=== PATIENT | female | born 1955 | race Caucasian/White ===

== ENCOUNTER → 2018-03-28 11:45 | Outpatient (CLI) | payer OTHER, SELFPAY | PROVIDERS: PCP Physician Assistant; Visit Provider Physician Assistant | DX: R30.0 Dysuria (principal); R39.15 Urgency of urination; D72.819 Decreased white blood cell count, unspecified; E78.5 Hyperlipidemia, unspecified | CPT/HCPCS: 87086 ==

== ENCOUNTER → 2018-06-10 08:12 | Outpatient (CLI) | payer OTHER, SELFPAY ==
[2018-06-10 09:43] LABS: Add Manual Diff / Slide Review NO; Basophils Percent Auto 2.4 % (0-2); Eosinophils Percent Auto 1.1 % (2-4); Hematocrit 41.3 % (36-46); Lymphocytes Percent Auto 35.6 % (25-40); Mean Corpuscular HGB Conc 33.9 % (30-36); Mean Corpuscular Hemoglobin 30.6 PG (26-34); Mean Corpuscular Volume 90.4 fL (80-100); Monocytes Percent Auto 10.2 % (3-14); Neutrophils Absolute Auto 1400 /uL (3000-5900); Neutrophils Percent Auto 50.7 % (50-75); Platelet Count 273 X10^3/uL (150-400); Red Blood Cell Count 4.57 X10^6/uL (4.0-5.2); Red Cell Distribution Width 12.7 % (11.6-14.8); White Blood Cell Count 2.9 X10^3/uL (4.5-11.0)
[2018-06-10 10:46] LABS: Cholesterol 284 mg/dL (140-199); HDL Cholesterol 57 mg/dL (40-60); LDL Cholesterol Calculated 202 mg/dL (<100); Triglycerides 125 mg/dL (35-150)
== END ==
PROVIDERS: PCP Physician Assistant; Visit Provider Physician Assistant
DX: E78.5 Hyperlipidemia, unspecified (principal); D72.819 Decreased white blood cell count, unspecified
CPT/HCPCS: 36415; 80061; 85025

== ENCOUNTER → 2018-07-21 15:00 | Oncology outpatient (ONC) | payer OTHER, SELFPAY ==
--- NOTE | 2018-06-30 15:49 | ONC.CONS ---
History of Present Illness - Data of Consult Patient: new to practice Consult date: 06/30/18 Requesting Physician: Ana Vasques PA-C Primary Care Provider: Ana Vasques PA-C - Consult Narrative Reason for consult: Leukopenia and neutropenia Narrative: Samantha Austin is a 63 year old female with medical comorbidities notable for hyperlipidemia and vitamin-D deficiency. She was referred to Hematology because of mild leukopenia. Patient recalled that she has been awere of the low WBC since 2016. Upon review of the available electronic medical records, patient's white cell count on May 14, 2014 was 2.8, on 08/13/2017 it was 3.4 and on December 03, 2017, it was 3.2. The most recent was taken on June 10, 2018 and was 2.9. The corresponding absolute neutrophil count was 1.1 on 05/14/2017, 1.8 on 08/13/2017, 1.7 on 12/03/2017 and 1.5 on 06/10/2018. His hemoglobin/hematocrit as well as platelet counts have always been within the normal range. Clinically, she reported fatigue which she attributed to long commute driving time daily and sleeping difficulty. She denies any lumps or bumps. No fever and no chills. She denies shortness of breath, denies any chest pain.She always sinus issue. She denies abdominal pain, nausea or vomiting. She has not had colonoscopy. She is getting mammogram yearly and has been unremarkable. She had exposed to silk screen Benzene when she was in college. Patient reports pain?: No Home Medications and Allergies Home Medications Medication Instructions Recorded Confirmed Type Cranberry 1 tab PO .QDAY 03/28/18 06/30/18 History Vitamin D3 See Label Instructions .ROUTE 03/28/18 06/30/18 History .COMPLEX aspirin 650 mg PO Q4-6H PRN 06/30/18 06/30/18 History loratadine [Alavert] 10 mg PO DAILY PRN 06/30/18 06/30/18 History rosuvastatin 10 mg tablet 10 mg PO BEDTIME #45 tab 06/30/18 Rx Allergies Allergy/AdvReac Type Severity Reaction Status Date / Time No Known Drug Allergies Allergy Verified 06/30/18 15:55 Medical History - Medical, Surgical, Family History Medical History: Medical History (Last Updated 05/22/18 @ 12:59 by Sarah Zepeda) Frequent UTI Onset Date: 2007 Hayfever Onset Date: 1974 Hearing loss Onset Date: 1965 Rosacea Onset Date: 1993 Chicken pox Onset Date: 1959 Fractures Measles Onset Date: 1960 Surgical History: Surgical History (Last Updated 05/22/18 @ 12:56 by Sarah Zepeda) Anesthesia History of tonsillectomy Onset Date: 1965 Status post cholecystectomy Onset Date: 1999 Family History: Family History Brother Age: 75 Heart disease Brother Age: 70 Alzheimer's disease Mother Hypertension Alzheimer's disease Pneumonia Sister Age: 65 High cholesterol Father Diverticulitis ETOH abuse - Social History Smoking Status: Never smoker Substance Use Type: does not use Alcohol Intake: current Alcohol Intake Frequency: holidays/special occasions only Review of Systems - Patient Self-Reported Symptoms SR Constitution: Weight loss/gain SR respiratory issues: Mucous All systems PM: reviewed and no additional remarkable complaints except as stated Exam Vital signs: Last Vital Signs Temp 98.6 F 06/30/18 15:52 Pulse 74 06/30/18 15:52 Resp 16 06/30/18 15:52 BP 125/64 06/30/18 15:52 Pulse Ox 96 06/30/18 15:52 ECOG 1 Narrative: Constitutional: Well developed, well nourished, not in any acute respiratory distress, average body habitus, well groomed, pleasant and cooperative. HEENT: NCAT, EOMI, PERRLA. Anicteric sclera. No hearing difficulty; Oral mucus membrane moist and without ulcers. Neck: Supple, symmetrical, and tracheal midline; No palpable thyromegaly and no palpable lymph nodes. Respiratory: No use of accessory muscles. Clear to auscultation, and no wheezes or rales or rubs. Cardiovascular: Regular rate and rhythm, S1 and S2 normal, no murmurs gallops or rubs. No JVD. No pitting edema of lower extremities. Abdomen: Soft, nontender, non-distended, bowel sounds normal, no palpable organomegaly, no hernia, no palpable masses. Extremities: No lower extremity pitting edema. Lymphatic: no palpable lymph nodes in the neck, axillae, or groins. Musculoskeletal: normal gait and station, no clubbing, no cyanosis, no pitting edema. Skin: no rashes, no ulcers, no petechiae Neurological: Awake and alert and oriented x3. CN II-XII grossly intact. No focal motor or sensory deficit. Psychiatric: Good judgment, good insight, normal affect, normal thought process, cooperative, no depression, no anxiety. Results - Labs Reviewed Assessment and Plan (1) Leukopenia Problem details: Mild leukopenia (neutropenia) at least since 05/2017. I reviewed the available lab results with the patient. I explained to the patient that mildly lowered neutrophil count has several different etiologies. Most commonly is medications related versus vitamin B12/folic acid deficiency. Talked with the patient that I will 1st proceed with screening laboratory tests. If they are normal, I will proceed with more tests regarding possibly hematological disorders. Today I also talked with the patient that his white cell count is decreased but the risk of infection is not significantly affected at this level of leukopenia. Plan: 1. CBC, CMP, B2M, SPEP reflex IFIX, B12, MMA, folic acid 2. RTC in 2-3 weeks for follow up visit.
[2018-06-30 15:52] VITALS: BP 125/64; PULSE 74; RESP 16; TEMP 37; O2SAT 96
[2018-07-04 16:10] LABS: Add Manual Diff / Slide Review NO; Basophils Percent Auto 0.2 % (0-2); Eosinophils Percent Auto 1.1 % (2-4); Hematocrit 41.7 % (36-46); Hemoglobin 13.7 g/dL (12.0-16.0); Lymphocytes Percent Auto 39.7 % (25-40); Mean Corpuscular HGB Conc 32.9 % (30-36); Mean Corpuscular Volume 91.2 fL (80-100); Monocytes Percent Auto 7.8 % (3-14); Neutrophils Absolute Auto 2200 /uL (3000-5900); Neutrophils Percent Auto 51.2 % (50-75); Platelet Count 325 X10^3/uL (150-400); Red Blood Cell Count 4.57 X10^6/uL (4.0-5.2); Red Cell Distribution Width 12.7 % (11.6-14.8); White Blood Cell Count 4.3 X10^3/uL (4.5-11.0)
[2018-07-04 17:40] LABS: Alanine Aminotransferase 26 IU/L (9-52); Albumin 4.3 g/dL (3.5-5.0); Albumin Globulin Ratio 1.6 (1.0-2.8); Alkaline Phosphatase 65 U/L (38-126); Aspartate Aminotransferase 26 IU/L (14-36); BUN Creatinine Ratio 21.4 (6-22); Bilirubin Total 0.3 mg/dL (0.2-1.3); Blood Urea Nitrogen 15 mg/dL (7-17); Calcium 9.1 mg/dL (8.4-10.2); Carbon Dioxide 26 mmol/L (22-32); Chloride 102 mmol/L (98-107); Estimated Glomerular Filt Rate > 60.0 mL/min (>60); Globulin 2.7 g/dL (1.7-4.1); Glucose 111 mg/dL (80-110); HEMOLYSIS < 15 (0-50); Lactate Dehydrogenase 389 U/L (313-618); Potassium 3.7 mmol/L (3.4-5.1); Sodium 141 mmol/L (137-145)
[2018-07-04 18:47] LABS: Vitamin B12 283 pg/mL (239-931)
--- NOTE | 2018-07-05 09:20 | PC.NURSE ---
Pre visit labs appear stable, outside labs pending, provider visit 07/21
[2018-07-07 21:18] LABS: Albumin 4.1 g/dL (3.8-4.8); Alpha 1 Globulin 0.2 g/dL (0.2-0.3); Alpha 2 Globulin 0.7 g/dL (0.5-0.9); Beta 1 Globulin 0.4 g/dL (0.4-0.6); Gamma Globulin 0.7 g/dL (0.8-1.7); Protein, Total 6.5 g/dL (6.1-8.1)
[2018-07-11 22:46] LABS: Methylmalonic Acid 280 nmol/L (87-318)
--- NOTE | 2018-07-21 15:21 | ONC.PN ---
PN -Subjective Interval history: Clinically patient has been doing well without any new complaints. Patient has been followed by [facility]. Patient said because of the high cholesterol level, she has been restarted on Crestor. She will continue follow-up with Ana Vasques with regular blood work. Repeat lab showed today the white cell count 4.3, hemoglobin 13.7 hematocrit 41.7 ANC 2.2. Hematological History: Samantha Austin is a 63 year old female with medical comorbidities notable for hyperlipidemia and vitamin-D deficiency. She was referred to Hematology because of mild leukopenia. Patient recalled that she has been awere of the low WBC since 2016. Upon review of the available electronic medical records, patient's white cell count on May 14, 2014 was 2.8, on 08/13/2017 it was 3.4 and on December 03, 2017, it was 3.2. The most recent was taken on June 10, 2018 and was 2.9. The corresponding absolute neutrophil count was 1.1 on 05/14/2017, 1.8 on 08/13/2017, 1.7 on 12/03/2017 and 1.5 on 06/10/2018. His hemoglobin/hematocrit as well as platelet counts have always been within the normal range. Clinically, she reported fatigue which she attributed to long commute driving time daily and sleeping difficulty. She denies any lumps or bumps. No fever and no chills. She denies shortness of breath, denies any chest pain.She always sinus issue. She denies abdominal pain, nausea or vomiting. She has not had colonoscopy. She is getting mammogram yearly and has been unremarkable. She had exposed to silk screen Benzene when she was in college. - Patient Self-Reported Symptoms SR Constitution: Weight loss/gain SR respiratory issues: Mucous - Additional ROS All systems PM: reviewed and no additional remarkable complaints except as stated Home Medications and Allergies Home Medications Medication Instructions Recorded Confirmed Type Cranberry 1 tab PO .QDAY 03/28/18 07/21/18 History Vitamin D3 See Label Instructions .ROUTE 03/28/18 07/21/18 History .COMPLEX aspirin 650 mg PO Q4-6H PRN 06/30/18 07/21/18 History loratadine [Alavert] 10 mg PO DAILY PRN 06/30/18 07/21/18 History rosuvastatin 10 mg tablet 10 mg PO BEDTIME #45 tab 06/30/18 07/21/18 Rx rosuvastatin [Crestor] 10 mg PO DAILY 07/21/18 07/21/18 History Allergies Allergy/AdvReac Type Severity Reaction Status Date / Time No Known Drug Allergies Allergy Verified 06/30/18 15:55 Exam Vital signs: Last Vital Signs Temp 98.6 F 06/30/18 15:52 Pulse 74 06/30/18 15:52 Resp 16 06/30/18 15:52 BP 125/64 06/30/18 15:52 Pulse Ox 96 06/30/18 15:52 ECOG 1 - Constitutional positive no acute distress, positive average body habitus, positive cooperative - Routine HEENT Exam Head: Present: normocephalic, atraumatic Eye: Present: EOMI, PERRL, normal accommodation. Absent: conjunctival icterus ENT: Present: mucous membranes moist - Routine Neck Exam Present: supple. Absent: lymphadenopathy, thyromegaly - Routine Respiratory Exam Present: Clear to auscultation bilaterally - Routine Cardiovascular Exam Present: RRR, S1, S2. Absent: murmur, gallop, rubs, S3 - Routine Abdominal Exam Present: soft, normoactive bowel sounds. Absent: organomegaly, mass - Routine Extremities Exam Absent: edema - Routine Neurological Exam Present: alert, oriented X3, CN II-XII intact - Routine Psychiatric Exam Present: normal affect, normal thought process, cooperative, good insight, good judgment Results - Labs Laboratory Last Values WBC 4.3 X10^3/uL (4.5-11.0) L 07/04/18 15:50 RBC 4.57 X10^6/uL (4.0-5.2) 07/04/18 15:50 Hgb 13.7 g/dL (12.0-16.0) 07/04/18 15:50 Hct 41.7 % (36-46) 07/04/18 15:50 MCV 91.2 fL (80-100) 07/04/18 15:50 MCH 30.0 PG (26-34) 07/04/18 15:50 MCHC 32.9 % (30-36) 07/04/18 15:50 RDW 12.7 % (11.6-14.8) 07/04/18 15:50 Plt Count 325 X10^3/uL (150-400) 07/04/18 15:50 Neut % (Auto) 51.2 % (50-75) 07/04/18 15:50 Lymph % (Auto) 39.7 % (25-40) 07/04/18 15:50 [place] % (Auto) 7.8 % (3-14) 07/04/18 15:50 Eos % (Auto) 1.1 % (2-4) L 07/04/18 15:50 Baso % (Auto) 0.2 % (0-2) 07/04/18 15:50 Neut # (Auto) 2200 /uL (6132-5871) L 07/04/18 15:50 Sodium 141 mmol/L (137-145) 07/04/18 15:50 Potassium 3.7 mmol/L (3.4-5.1) 07/04/18 15:50 Chloride 102 mmol/L (98-107) 07/04/18 15:50 Carbon Dioxide 26 mmol/L (22-32) 07/04/18 15:50 BUN 15 mg/dL (7-17) 07/04/18 15:50 Creatinine 0.70 mg/dL (0.52-1.04) 07/04/18 15:50 Estimated GFR > 60.0 mL/min (>60) 07/04/18 15:50 BUN/Creatinine Ratio 21.4 (6-22) 07/04/18 15:50 Glucose 111 mg/dL (80-110) H 07/04/18 15:50 Calcium 9.1 mg/dL (8.4-10.2) 07/04/18 15:50 Total Bilirubin 0.3 mg/dL (0.2-1.3) 07/04/18 15:50 AST 26 IU/L (14-36) 07/04/18 15:50 ALT 26 IU/L (9-52) 07/04/18 15:50 Alkaline Phosphatase 65 U/L (38-126) 07/04/18 15:50 Lactate Dehydrogenase 389 U/L (313-618) 07/04/18 15:50 Serum Total Protein 6.5 g/dL (6.1-8.1) 07/04/18 15:50 Total Protein 7.0 g/dL (6.3-8.2) 07/04/18 15:50 Albumin 4.1 g/dL (3.8-4.8) 07/04/18 15:50 Globulin 2.7 g/dL (1.7-4.1) 07/04/18 15:50 Albumin/Globulin Ratio 1.6 (1.0-2.8) 07/04/18 15:50 Chkpu-9-Iiidjidip 0.2 g/dL (0.2-0.3) 07/04/18 15:50 Nzbhq-1-Lnfsnjfjb 0.7 g/dL (0.5-0.9) 07/04/18 15:50 Gucv-8-Yjjaofwl 0.4 g/dL (0.4-0.6) 07/04/18 15:50 Ozfb-7-Rodgecie 0.4 g/dL (0.2-0.5) 07/04/18 15:50 Fbbs-0-Emugpzbktnaea 2.10 mg/L (< 2.52) 07/04/18 15:50 Gamma Globulins 0.7 g/dL (0.8-1.7) L 07/04/18 15:50 Abnorm Protein Band 1 Not Reportable 07/04/18 15:50 Abnorm Protein Band 2 Not Reportable 07/04/18 15:50 Abn Gamma Band 3 Serum Not Reportable 07/04/18 15:50 PEP Comment See note 07/04/18 15:50 Vitamin B12 283 pg/mL (239-931) 07/04/18 15:50 Methylmalonic Acid 280 nmol/L (87-318) 07/04/18 15:50 Folate 6.0 ng/mL (2.76-20.0) 07/04/18 15:50 Assessment and Plan (1) Leukopenia Problem details: Mild leukopenia (neutropenia) at least since 05/2017. Assessment and Plan: I reviewed the laboratory results with the patient. Patient's white cell count has almost normalized. Her vitamin B12, and folic acid level are all within the normal range. Now, the WBC is trending up. I think the leukopenia probably is related to either medications or some transient factors. I talked with the patient that she needs to continued follow-up. She will follow-up with Ana Vasques. I recommend regular CBC with differentials. If it becomes low again, patient needs to call us back for follow-up visit.
[2018-07-21 16:01] VITALS: BP 130/76; PULSE 77; RESP 16; TEMP 37.3; O2SAT 98
== END ==
PROVIDERS: PCP Physician Assistant; Visit Provider Internal Medicine Hematology & Oncology
DX: D72.819 Decreased white blood cell count, unspecified (principal); E78.5 Hyperlipidemia, unspecified; E55.9 Vitamin D deficiency, unspecified
CPT/HCPCS: 36415; 80053; 82232; 82607; 82746; 83615; 83921; 84155; 84165; 85025; 99204; 99214

== ENCOUNTER → 2018-09-09 08:14 | Outpatient (CLI) | payer OTHER, SELFPAY ==
[2018-09-09 10:14] LABS: Alanine Aminotransferase 44 IU/L (9-52); Albumin 4.2 g/dL (3.5-5.0); Albumin Globulin Ratio 1.6 (1.0-2.8); Alkaline Phosphatase 67 U/L (38-126); Aspartate Aminotransferase 38 IU/L (14-36); BUN Creatinine Ratio 17.1 (6-22); Bilirubin Total 0.6 mg/dL (0.2-1.3); Blood Urea Nitrogen 12 mg/dL (7-17); Calcium 9.2 mg/dL (8.4-10.2); Carbon Dioxide 26 mmol/L (22-32); Chloride 105 mmol/L (98-107); Cholesterol 190 mg/dL (140-199); Estimated Glomerular Filt Rate > 60.0 mL/min (>60); Globulin 2.6 g/dL (1.7-4.1); Glucose 84 mg/dL (80-110); HDL Cholesterol 78 mg/dL (40-60); HEMOLYSIS < 15 (0-50); LDL Cholesterol Calculated 87 mg/dL (<100); Potassium 4.3 mmol/L (3.4-5.1); Sodium 140 mmol/L (137-145); Total Protein 6.8 g/dL (6.3-8.2); Triglycerides 125 mg/dL (35-150)
== END ==
PROVIDERS: PCP Physician Assistant; Visit Provider Physician Assistant
DX: E78.5 Hyperlipidemia, unspecified (principal)
CPT/HCPCS: 36415; 80053; 80061

== ENCOUNTER → 2018-11-15 17:26 | Outpatient (CLI) | payer OTHER, SELFPAY | PROVIDERS: PCP Physician Assistant; Visit Provider Physician Assistant | DX: R30.0 Dysuria (principal) | CPT/HCPCS: 87077; 87086; 87186 ==

== ENCOUNTER → 2019-03-23 08:13 | Outpatient (CLI) | payer OTHER, SELFPAY ==
[2019-03-23 08:54] LABS: Add Manual Diff / Slide Review NO; Basophils Absolute Auto 100 /uL (0-100); Basophils Percent Auto 2.7 % (0-2); Eosinophils Absolute Auto 100 /uL (0-450); Hemoglobin 14.3 g/dL (12.0-16.0); Lymphocytes Absolute Auto 1100 /uL (1100-4500); Lymphocytes Percent Auto 35.4 % (25-40); Mean Corpuscular HGB Conc 34.2 % (30-36); Mean Corpuscular Hemoglobin 30.8 PG (26-34); Mean Corpuscular Volume 90.1 fL (80-100); Monocytes Absolute Auto 300 /uL (0-900); Monocytes Percent Auto 9.1 % (3-14); Neutrophils Absolute Auto 1600 /uL (1500-7000); Neutrophils Percent Auto 50.8 % (50-75); Platelet Count 262 X10^3/uL (150-400); Red Blood Cell Count 4.66 X10^6/uL (4.0-5.2); Red Cell Distribution Width 12.9 % (11.6-14.8); White Blood Cell Count 3.1 X10^3/uL (4.5-11.0)
[2019-03-23 09:21] LABS: Alanine Aminotransferase 23 IU/L (9-52); Albumin 4.1 g/dL (3.5-5.0); Albumin Globulin Ratio 1.4 (1.0-2.8); Alkaline Phosphatase 61 U/L (38-126); Aspartate Aminotransferase 26 IU/L (14-36); BUN Creatinine Ratio 13.8 (6-22); Bilirubin Total 0.5 mg/dL (0.2-1.3); Blood Urea Nitrogen 11 mg/dL (7-17); Calcium 9.3 mg/dL (8.4-10.2); Carbon Dioxide 28 mmol/L (22-32); Chloride 106 mmol/L (98-107); Cholesterol 165 mg/dL (140-199); Estimated Glomerular Filt Rate > 60.0 mL/min (>60); Globulin 2.9 g/dL (1.7-4.1); Glucose 90 mg/dL (80-110); HDL Cholesterol 64 mg/dL (40-60); HEMOLYSIS < 15 (0-50); LDL Cholesterol Calculated 73 mg/dL (<100); Potassium 4.1 mmol/L (3.4-5.1); Sodium 141 mmol/L (137-145); Triglycerides 142 mg/dL (35-150)
[2019-03-23 09:37] LABS: Vitamin D 25 Hydroxy (D3) 58.6 ng/mL (30.0-100.0)
== END ==
PROVIDERS: PCP Physician Assistant; Visit Provider Physician Assistant
DX: D72.819 Decreased white blood cell count, unspecified (principal); E55.9 Vitamin D deficiency, unspecified; E78.5 Hyperlipidemia, unspecified; M81.0 Age-related osteoporosis without current pathological fracture
CPT/HCPCS: 36415; 80053; 80061; 82306; 85025

== ENCOUNTER → 2019-04-24 13:35 | Outpatient (CLI) | payer OTHER, SELFPAY | PROVIDERS: PCP Physician Assistant; Visit Provider Physician Assistant | DX: N30.01 Acute cystitis with hematuria (principal) | CPT/HCPCS: 87077; 87086; 87186 ==

== ENCOUNTER → 2019-05-23 10:13 | Outpatient (CLI) | payer OTHER, SELFPAY | PROVIDERS: PCP Physician Assistant; Visit Provider Physician Assistant | DX: M85.852 Other specified disorders of bone density and structure, left thigh (principal); Z78.0 Asymptomatic menopausal state; Z82.62 Family history of osteoporosis | CPT/HCPCS: 77080 ==

== ENCOUNTER → 2019-06-30 12:52 | Outpatient (CLI) | payer MEDICARE, OTHER, SELFPAY | PROVIDERS: PCP Physician Assistant; Visit Provider Physician Assistant | DX: R30.0 Dysuria (principal) | CPT/HCPCS: 87077; 87086; 87186 ==

== ENCOUNTER → 2020-04-04 08:54 | Outpatient (CLI) | payer MEDICARE, OTHER, SELFPAY ==
[2020-04-04 09:58] LABS: Alanine Aminotransferase 19 IU/L (<35); Albumin 4.4 g/dL (3.5-5.0); Albumin Globulin Ratio 1.6 (1.0-2.8); Alkaline Phosphatase 71 U/L (38-126); Aspartate Aminotransferase 28 IU/L (14-36); Bilirubin Total 1.1 mg/dL (0.2-1.3); Blood Urea Nitrogen 15 mg/dL (7-17); Calcium 9.5 mg/dL (8.4-10.2); Carbon Dioxide 29 mmol/L (22-32); Chloride 105 mmol/L (98-107); Cholesterol 182 mg/dL (140-199); Estimated Glomerular Filt Rate > 60.0 mL/min (>60); Globulin 2.8 g/dL (1.7-4.1); Glucose 88 mg/dL (80-110); HDL Cholesterol 78 mg/dL (40-60); HEMOLYSIS < 15 (0-50); LDL Cholesterol Calculated 80 mg/dL (<100); Potassium 4.1 mmol/L (3.4-5.1); Sodium 139 mmol/L (137-145); Total Protein 7.2 g/dL (6.3-8.2); Triglycerides 118 mg/dL (35-150)
[2020-04-04 15:51] LABS: Vitamin D 25 Hydroxy (D3) 58.2 ng/mL (30.0-100.0)
== END ==
PROVIDERS: PCP Registered Nurse; Referring Provider Registered Nurse; Visit Provider Registered Nurse
DX: E55.9 Vitamin D deficiency, unspecified (principal); M81.0 Age-related osteoporosis without current pathological fracture; E78.5 Hyperlipidemia, unspecified
CPT/HCPCS: 36415; 80053; 80061; 82306

== ENCOUNTER 2020-08-23 10:03 | Emergency (ER) | payer MEDICARE, OTHER, SELFPAY ==
[2020-08-23] VITALS (11 sets, daily range): BP systolic 134–165; BP diastolic 63–76; PULSE 61–71; RESP 14–18; TEMP 36.8; O2SAT 96–100
--- NOTE | 2020-08-23 10:06 | DI.RAD.S_ITS ---
PROCEDURE: XR KNEE LT 1TO2V COMPARISON: None. INDICATIONS: fall pain swelling FINDINGS: Three views of the left knee demonstrate a fracture of the lateral tibia with a vertical fracture line extending from the diaphysis and exiting in the tibial plateau likely at the medial tibial spine. There is a large lipohemarthrosis. IMPRESSION: 1. Fracture of the medial tibial plateau with the fracture extending vertically to the medial proximal diaphysis. 2. Large lipohemarthrosis. Dictated by: Lewis Mancuso M.D. on 08/23/2020 at 10:31 Approved by: Lewis Mancuso M.D. on 08/23/2020 at 10:34
--- NOTE | 2020-08-23 10:32 | ED.LOWEXIN ---
HPI - Extremity Injury (Lower) General Chief Complaint: Extremity Injury, Lower Stated Complaint: GLF, left knee deformity Time Seen by Provider: 08/23/20 10:06 Source: patient and EMS Mode of arrival: EMS History of Present Illness HPI Narrative: Patient is a 65-year-old female who presents with left lower leg injury. She states that she was going up some stairs when she tripped over her toe landed directly onto her left knee and hit her nose. No actual head injury no loss of consciousness. She denies numbness or tingling. Unable to weight bear. Not on any anti-platelet or anticoagulation medication complaint: knee injury Onset (ago): hour(s) Type of Injury: blunt Related Data Home Medications Medication Instructions Recorded Confirmed Cranberry 1 tab PO .QDAY 03/28/18 04/01/20 Vitamin D3 See Rx Instructions .ROUTE .COMPLEX 03/28/18 04/01/20 cetirizine 10 mg tablet 10 mg PO DAILY 12/15/18 04/01/20 ibuprofen 200 mg tablet See Rx Instructions PO ONCE PRN 04/26/19 04/01/20 tab pseudoephedrine HCl 120 mg 120 mg PO ONCE PRN tab 04/26/19 04/01/20 tablet,extended release Previous Rx's Medication Instructions Recorded rosuvastatin 10 mg tablet 10 mg PO DAILY #90 tab 06/25/20 Allergies Allergy/AdvReac Type Severity Reaction Status Date / Time No Known Drug Allergies Allergy Verified 06/30/19 12:45 Review of Systems Review of Systems Narrative: GENERAL: Denies chills,fever HEENT: Denies throat pain RESPIRATORY: Denies dyspnea, cough, wheezing CARDIOVASCULAR: Denies chest pain, palpitations GASTROINTESTINAL: Denies nausea, vomiting MUSCULOSKELETAL: See HPI SKIN: No rash, no laceration, no pruritus NEUROLOGIC: Denies weakness, dizziness, headache, numbness 8 point review of systems is negative except for those stated above and HPI Patient History Medical History (Updated 08/23/20 @ 13:34 by Daiana Hickman DO) Chicken pox (1960) Colon cancer screening Fractures Frequent UTI (2007) Hayfever (1974) Hearing loss (1965) Measles (1960) Rosacea (1993) Surgical History Anesthesia History of tonsillectomy (1965) Status post cholecystectomy (1999) Family History Brother Age: 77 Heart disease Brother Age: 73 Alzheimer's disease Mother Hypertension Alzheimer's disease Pneumonia Sister Age: 68 High cholesterol Father Diverticulitis ETOH abuse Social History Smoking Status: Never smoker second hand exposure: No alcohol intake: current substance use type: does not use Smoking Status: Never smoker alcohol intake frequency: holidays/special occasions only Exam Initial Vital Signs Initial Vital Signs: Vital Signs Temperature 98.3 F 08/23/20 10:05 Pulse Rate 66 08/23/20 10:05 Respiratory Rate 18 08/23/20 10:05 Blood Pressure 165/72 H 08/23/20 10:05 Pulse Oximetry 97 08/23/20 10:05 GENERAL: Well-appearing, well-nourished and in no acute distress. CARDIOVASCULAR: peripheral pulses in tact, cap refill <2 sec RESPIRATORY: No respiratory distress, speaks in full sentences without difficulty EXTREMITIES: Normal range of motion, no clubbing or edema. Neurovascularly intact Left lower extremity: Swelling in the but able to extend and flex knee. Strong distal pedal pulses felt neurovascularly intact no hip pain or deformity NEUROLOGICAL: Cranial nerves II through XII grossly intact. Normal gait and speech. SKIN: Warm, dry, no petechiae, no rashes or lesions. Course Orders Ordered: ED Orders 08/23/20 10:06 XR knee LT 3V Stat 08/23/20 11:36 COVID19 Stat 08/23/20 11:50 CT LE LT wo con Stat 08/23/20 11:59 Basic Metabolic Panel Stat Complete Blood Count AUTO DIFF Stat Discontinued Medications Morphine Sulfate (Morphine 5 Mg/Ml Inj) 2 mg IV NOW ONE Stop: 08/23/20 12:07 Morphine Sulfate (Morphine 2 Mg/Ml Inj) 2 mg IV NOW ONE Stop: 08/23/20 12:16 Last Admin: 08/23/20 12:15 Dose: 2 mg Documented by: CRYSTAL Morphine Sulfate (Morphine 2 Mg/Ml Inj) 2 mg IV NOW ONE Stop: 08/23/20 13:52 Last Admin: 08/23/20 13:55 Dose: 2 mg Documented by: ZGELEYN Vital Signs Vital signs: Vital Signs - 8 hr 08/23/20 10:05 08/23/20 11:47 08/23/20 11:49 Temperature 98.3 F Pulse Rate 66 64 66 Respiratory Rate 18 Blood Pressure 165/72 H 144/67 H Pulse Oximetry 97 97 98 08/23/20 12:00 08/23/20 12:02 08/23/20 12:30 Temperature Pulse Rate 61 66 67 Respiratory Rate 14 Blood Pressure 164/76 H 165/72 H Pulse Oximetry 99 97 99 08/23/20 12:32 08/23/20 13:00 08/23/20 13:30 Temperature Pulse Rate 71 65 64 Respiratory Rate Blood Pressure 138/67 139/63 Pulse Oximetry 99 100 96 08/23/20 13:32 08/23/20 13:33 Temperature Pulse Rate 61 Respiratory Rate Blood Pressure 134/76 Pulse Oximetry 97 MDM - Extremity Injury (Lower) Lab Data Attestation: I reviewed the patient's lab results. Result diagrams: 08/23/20 11:59 08/23/20 11:59 Labs: Lab Results 08/23/20 08/23/20 08/23/20 Range/Units 11:36 11:59 11:59 WBC 7.2 (4.5-11.0) X10^3/uL RBC 4.62 (4.0-5.2) X10^6/uL Hgb 13.8 (12.0-16.0) g/dL Hct 41.7 (36-46) % MCV 90.3 (80-100) fL MCH 29.8 (26-34) PG MCHC 33.0 (30-36) % RDW 12.9 (11.6-14.8) % Plt Count 287 (150-400) X10^3/uL Neut % (Auto) 81.9 H (50-75) % Lymph % (Auto) 12.3 L (25-40) % [place] % (Auto) 4.6 (3-14) % Eos % (Auto) 0.2 L (2-4) % Baso % (Auto) 1.0 (0-2) % Neut # (Auto) 5900 (1503-5337) /uL Lymph # (Auto) 900 L (0778-9886) /uL [place] # (Auto) 300 (0-900) /uL Eos # (Auto) 0 (0-450) /uL Baso # (Auto) 100 (0-100) /uL Sodium 138 (137-145) mmol/L Potassium 3.8 (3.4-5.1) mmol/L Chloride 105 (98-107) mmol/L Carbon Dioxide 28 (22-32) mmol/L BUN 15 (7-17) mg/dL Creatinine 0.60 (0.52-1.04) mg/dL Estimated GFR > 60.0 (>60) mL/min BUN/Creatinine Ratio 25.0 H (6-22) Glucose 98 (80-110) mg/dL Calcium 9.2 (8.4-10.2) mg/dL COVID-19 PCR Negative (Negative) Imaging Data Extremity x-ray #1: Radiologist's Impression: PROCEDURE: XR KNEE LT 1TO2V COMPARISON: None. INDICATIONS: fall pain swelling FINDINGS: Three views of the left knee demonstrate a fracture of the lateral tibia with a vertical fracture line extending from the diaphysis and exiting in the tibial plateau likely at the medial tibial spine. There is a large lipohemarthrosis. IMPRESSION: 1. Fracture of the medial tibial plateau with the fracture extending vertically to the medial proximal diaphysis. 2. Large lipohemarthrosis. Dictated by: Lewis Mancuso M.D. on 08/23/2020 at 10:31 Extremity x-ray #2: Radiologist's Impression: PROCEDURE: CT LE LT W CON INDICATIONS: Tibial plateau fracture TECHNIQUE: Noncontrast 1-1.5 mm axial sections acquired from the mid-patella to the proximal tibia, with coronal and sagittal reformats. COMPARISON: None. FINDINGS: Image quality: Excellent. Bones: There is a vertically oriented medial tibial plateau fracture extending from the medial tibial spine to the proximal tibial diaphysis. There is approximately 1 millimeter step-off at the anterior articular surface and no step-off of the posterior articular surface. The fracture is mildly displaced at the medial tibial diaphysis measuring 3 millimeters. There is no fracture of the fibula or the femur. Soft tissues: There is a moderate-sized lipohemarthrosis. IMPRESSION: 1. Medial tibial plateau fracture with minimal step-off (1 millimeter) of the anterior articular surface. 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 2. Lipohemarthrosis. Dictated by: Lewis Mancuso M.D. on 08/23/2020 at 12:24 MDM Narrative Medical decision making narrative: 11:00AM Dr. Sun, orthopedics recommends transferring to our level of care. 11:[address] Thomason, ER physician at [facility] accepts patient for transfer Patient really requiring very minimal for pain control. She did have a cup of coffee with earlier this morning that was the last thing she ate Discharge Plan Departure Patient Disposition: [facility] Clinical Impression: Closed fracture of left tibial plateau Qualifiers: Encounter type: initial encounter Qualified Code(s): S82.142A - Displaced bicondylar fracture of left tibia, initial encounter for closed fracture Prescriptions: No Action Cranberry 1 tab PO .QDAY RF: 0 Vitamin D3 See Rx Instructions .ROUTE .COMPLEX RF: 0 cetirizine [Aller-Leonela] 10 mg tablet 10 mg PO DAILY RF: 0 rosuvastatin 10 mg tablet 10 mg PO DAILY Qty: 90 RF: 1 pseudoephedrine HCl [Sudafed 12 Hour] 120 mg tablet extended release 120 mg PO ONCE PRNRF: 0 ibuprofen [Advil] 200 mg tablet See Rx Instructions PO ONCE PRNRF: 0 Referrals: Ramon Patel ARNP [Primary Care Provider] -
--- NOTE | 2020-08-23 11:50 | DI.CT.S_ITS ---
PROCEDURE: CT LE LT W CON INDICATIONS: Tibial plateau fracture TECHNIQUE: Noncontrast 1-1.5 mm axial sections acquired from the mid-patella to the proximal tibia, with coronal and sagittal reformats. COMPARISON: None. FINDINGS: Image quality: Excellent. Bones: There is a vertically oriented medial tibial plateau fracture extending from the medial tibial spine to the proximal tibial diaphysis. There is approximately 1 millimeter step-off at the anterior articular surface and no step-off of the posterior articular surface. The fracture is mildly displaced at the medial tibial diaphysis measuring 3 millimeters. There is no fracture of the fibula or the femur. Soft tissues: There is a moderate-sized lipohemarthrosis. IMPRESSION: 1. Medial tibial plateau fracture with minimal step-off (1 millimeter) of the anterior articular surface. 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 2. Lipohemarthrosis. Dictated by: Lewis Mancuso M.D. on 08/23/2020 at 12:24 Approved by: Lewis Mancuso M.D. on 08/23/2020 at 12:31
[2020-08-23 12:00] LABS: COVID19 -Nasal RAPID Negative (Negative)
[2020-08-23 12:10] LABS: Add Manual Diff / Slide Review NO; Basophils Absolute Auto 100 /uL (0-100); Eosinophils Absolute Auto 0 /uL (0-450); Eosinophils Percent Auto 0.2 % (2-4); Hematocrit 41.7 % (36-46); Hemoglobin 13.8 g/dL (12.0-16.0); Lymphocytes Absolute Auto 900 /uL (1100-4500); Lymphocytes Percent Auto 12.3 % (25-40); Mean Corpuscular Hemoglobin 29.8 PG (26-34); Mean Corpuscular Volume 90.3 fL (80-100); Monocytes Absolute Auto 300 /uL (0-900); Monocytes Percent Auto 4.6 % (3-14); Neutrophils Absolute Auto 5900 /uL (1500-7000); Neutrophils Percent Auto 81.9 % (50-75); Platelet Count 287 X10^3/uL (150-400); Red Blood Cell Count 4.62 X10^6/uL (4.0-5.2); Red Cell Distribution Width 12.9 % (11.6-14.8); White Blood Cell Count 7.2 X10^3/uL (4.5-11.0)
[2020-08-23] MEDS: MORPHINE 2 MG/ML INJ IV ×2 (12:15→13:55)
[2020-08-23 12:18] LABS: Blood Urea Nitrogen 15 mg/dL (7-17); Calcium 9.2 mg/dL (8.4-10.2); Carbon Dioxide 28 mmol/L (22-32); Chloride 105 mmol/L (98-107); Estimated Glomerular Filt Rate > 60.0 mL/min (>60); Glucose 98 mg/dL (80-110); HEMOLYSIS 29 (0-50); Potassium 3.8 mmol/L (3.4-5.1); Sodium 138 mmol/L (137-145)
== END 2020-08-23 14:05 | disposition short-term general hospital (02) ==
PROVIDERS: Emergency Provider Emergency Medicine; PCP Registered Nurse
DX: S82.142A Displaced bicondylar fracture of left tibia, initial encounter for closed fracture (principal); S09.92XA Unspecified injury of nose, initial encounter; W19.XXXA Unspecified fall, initial encounter; Z20.828 Contact with and (suspected) exposure to other viral communicable diseases
CPT/HCPCS: 36415; 73560; 73562; 73700; 80048; 85025; 87635; 96374; 96376; 99281; 99284; J2270

== ENCOUNTER → 2021-04-17 08:07 | Outpatient (CLI) | payer MEDICARE, OTHER, SELFPAY ==
[2021-04-17 09:20] LABS: Cholesterol 226 mg/dL (140-199); HDL Cholesterol 82 mg/dL (40-60); LDL Cholesterol Calculated 116 mg/dL (<100); Triglycerides 140 mg/dL (35-150)
== END ==
PROVIDERS: PCP Registered Nurse; Referring Provider Registered Nurse; Visit Provider Registered Nurse
DX: E78.5 Hyperlipidemia, unspecified (principal)
CPT/HCPCS: 36415; 80061

== ENCOUNTER → 2021-08-09 09:18 | Outpatient (CLI) | payer MEDICARE, OTHER, SELFPAY | PROVIDERS: PCP Registered Nurse; Visit Provider Nurse Practitioner | DX: R35.0 Frequency of micturition (principal) | CPT/HCPCS: 87077; 87086; 87186 ==

== ENCOUNTER → 2022-02-25 12:19 | Outpatient (CLI) | payer MEDICARE, OTHER, SELFPAY | PROVIDERS: PCP Registered Nurse; Visit Provider Physician Assistant | DX: R30.0 Dysuria (principal) | CPT/HCPCS: 87077; 87086; 87186 ==

== ENCOUNTER → 2022-03-16 14:06 | Outpatient (CLI) | payer MEDICARE, OTHER, SELFPAY ==
--- NOTE | 2022-03-16 14:08 | DI.RAD.S_ITS ---
PROCEDURE: XR HIP W PEL IF DONE RT 2V INDICATIONS: assess anatomy - spurs, jt space? TECHNIQUE: AP pelvis with lateral view of the right hip. COMPARISON: None. FINDINGS: Bones: No acute fractures or dislocations. Pelvic ring appears intact. No suspicious bony lesions. There is mild joint space narrowing in the hips bilaterally. Small marginal osteophytes are seen at the lateral acetabulum bilaterally and the right femoral head/neck junction. Probable bilateral pars defects are incidentally noted at the L5 level. Soft tissues: The visualized bowel gas pattern is normal. No suspicious soft tissue calcifications. IMPRESSION: [id number] right and mild left hip osteoarthrosis. Dictated by: Chris Ross M.D. on 03/16/2022 at 16:47 Approved by: Chris Ross M.D. on 03/16/2022 at 16:48
== END ==
PROVIDERS: PCP Pediatrics; Referring Provider Pediatrics; Visit Provider Pediatrics
DX: M25.551 Pain in right hip (principal); G89.29 Other chronic pain; M16.0 Bilateral primary osteoarthritis of hip
CPT/HCPCS: 73502

== ENCOUNTER → 2023-02-10 07:55 | Outpatient (CLI) | payer MEDICARE, OTHER, SELFPAY ==
[2023-02-10 08:48] LABS: Add Manual Diff / Slide Review NO; Basophils Absolute Auto 0 /uL (0-100); Basophils Percent Auto 1.5 % (0-2); Eosinophils Absolute Auto 100 /uL (0-450); Eosinophils Percent Auto 1.5 % (2-4); Hematocrit 39.7 % (36-46); Hemoglobin 13.3 g/dL (12.0-16.0); Lymphocytes Absolute Auto 1100 /uL (1100-4500); Lymphocytes Percent Auto 33.3 % (25-40); Mean Corpuscular HGB Conc 33.6 % (30-36); Mean Corpuscular Hemoglobin 30.5 PG (26-34); Mean Corpuscular Volume 90.8 fL (80-100); Monocytes Absolute Auto 300 /uL (0-900); Monocytes Percent Auto 8.7 % (3-14); Neutrophils Absolute Auto 1900 /uL (1500-7000); Platelet Count 262 X10^3/uL (150-400); Red Blood Cell Count 4.37 X10^6/uL (4.0-5.2); Red Cell Distribution Width 12.8 % (11.6-14.8); White Blood Cell Count 3.4 X10^3/uL (4.5-11.0)
[2023-02-10 09:07] LABS: Alanine Aminotransferase 21 IU/L (<35); Albumin Globulin Ratio 1.7 (1.0-2.8); Alkaline Phosphatase 69 U/L (38-126); Aspartate Aminotransferase 26 IU/L (14-36); BUN Creatinine Ratio 21.2 (6-22); Bilirubin Total 0.5 mg/dL (0.2-1.3); Blood Urea Nitrogen 14 mg/dL (7-17); Calcium 9.2 mg/dL (8.4-10.2); Carbon Dioxide 30 mmol/L (22-32); Chloride 103 mmol/L (98-107); Cholesterol 155 mg/dL (140-199); Estimated Glomerular Filt Rate > 60 mL/min (>60); Globulin 2.4 g/dL (1.7-4.1); Glucose 85 mg/dL (80-110); HDL Cholesterol 66 mg/dL (40-60); HEMOLYSIS < 15 (0-50); LDL Cholesterol Calculated 67 mg/dL (<100); Potassium 3.9 mmol/L (3.4-5.1); Sodium 139 mmol/L (137-145); Total Protein 6.4 g/dL (6.3-8.2); Triglycerides 111 mg/dL (35-150)
[2023-02-10 09:18] LABS: Vitamin D 25 Hydroxy (D3) 65.3 ng/mL (30.0-100.0)
== END ==
PROVIDERS: PCP Pediatrics; Referring Provider Pediatrics; Visit Provider Pediatrics
DX: D72.819 Decreased white blood cell count, unspecified (principal); E78.5 Hyperlipidemia, unspecified; E55.9 Vitamin D deficiency, unspecified; Z13.9 Encounter for screening, unspecified
CPT/HCPCS: 36415; 80053; 80061; 82306; 85025

== ENCOUNTER → 2023-09-05 11:44 | Outpatient (CLI) | payer MEDICARE, OTHER, SELFPAY | PROVIDERS: PCP Pediatrics; Visit Provider Physician Assistant | DX: R30.0 Dysuria (principal) | CPT/HCPCS: 87077; 87086; 87186 ==

== ENCOUNTER → 2023-09-17 09:21 | Outpatient (CLI) | payer MEDICARE, OTHER, SELFPAY | PROVIDERS: PCP Pediatrics; Visit Provider Nurse Practitioner Family | DX: R35.0 Frequency of micturition (principal) | CPT/HCPCS: 87077; 87086; 87186 ==

== ENCOUNTER → 2023-09-27 08:18 | Outpatient (CLI) | payer MEDICARE, OTHER, SELFPAY | PROVIDERS: PCP Pediatrics; Visit Provider Physician Assistant | DX: R30.0 Dysuria (principal) | CPT/HCPCS: 87077; 87086; 87186; 87210 ==

== ENCOUNTER → 2023-11-09 09:44 | Outpatient (CLI) | payer MEDICARE, OTHER, SELFPAY ==
--- NOTE | 2023-11-09 09:48 | DI.RAD.S_ITS ---
Bone Density Report Name: ERICKSON OLIVERA Age: 68 Sex: Female Ethnicity: White Date of : 1955 Indication: osteopenia; parental hip fracture; Referring Provider: TALYA MORTENSEN Study: Bone densitometry was performed. Exam Date: November 09, 2023 Accession number: [id number] Bone Density: Region BMD T-score Z-score Classification AP Spine(L1-L4) 0.806 -2.2 -0.1 Osteopenia Femoral Neck (Left) 0.612 -2.1 -0.4 Osteopenia Total Hip (Left) 0.726 -1.8 -0.3 Osteopenia Femoral Neck (Right) 0.690 -1.4 0.4 Osteopenia Total Hip (Right) 0.733 -1.7 -0.2 Osteopenia Total Hip Mean 0.729 -1.8 -0.3 Osteopenia World Health Organization criteria for BMD impression classify patients as: Normal (T-score at or above -1.0), Osteopenia (T-score between -1.0 and -2.5), or Osteoporosis (T-score at or below -2.5). 10-year Fracture Risk(1): Major Osteoporotic Fracture 19% Hip Fracture 5.2% Reported Risk Factors: [place] (), Neck BMD=0.612, BMI=23.3, parental fracture (1) FRAX(R) Version 3.08. Fracture probability calculated for an untreated patient. Fracture probability may be lower if the patient has received treatment. Previous Exams: -- Region Exam Age BMD T-score BMD Change BMD Change Date g/cm2 vs Baseline vs Previous -- AP Spine (L1-L4) 11/09/2023 68 0.806 -2.2 -0.066 (-7.5%)# -0.066 (-7.5%)# 05/23/2019 64 0.871 -1.6 Total Hip(Left) 11/09/2023 68 0.726 -1.8 -0.001 (-0.1%)# -0.001 (-0.1%)# 05/23/2019 64 0.727 -1.8 Total Hip(Right) 11/09/2023 68 0.733 -1.7 -0.004 (-0.6%)# -0.004 (-0.6%)# 05/23/2019 64 0.737 -1.7 -- *Denotes significance at 95% confidence level, LSC for AP Spine = 0.022 g/cm2, LSC for Total Hip = 0.027 g/cm2 # Denotes dissimilar scan types or analysis methods Impression: The patient has low bone mass, based on the Total Spine T-score. The patient has an estimated ten-year risk of hip fracture of 5.2% and an estimated ten-year risk of major fracture of 19%, based on the WHO FRAX algorithm. The patient has risk factors, including: parental hip fracture. No significant bone loss was observed. Discussion: BONE DENSITY IS LOW AT ONE OR MORE SKELETAL SITES. THE PATIENT'S BMD AND CLINICAL RISK FACTORS CONTRIBUTE TO THIS PATIENT'S INCREASED RISK OF FRACTURE. This patient's lowest T-score is low at one or more skeletal sites. It meets the World Health Organization's (WHO) criteria for low bone mass (T-score between -1.0 and -2.5). The patient's 10-year risk of hip fracture as calculated by FRAX exceeds the threshold where pharmacological therapy is recommended by the National Osteoporosis Foundation (NOF). However, all treatment decisions require clinical judgment and consideration of individual patient factors, including patient preferences, comorbidities, previous drug use, risk factors not captured in the FRAX model (e.g., frailty, falls, vitamin D deficiency, increased bone turnover, interval significant decline in bone density) and possible under or overestimation of fracture risk by FRAX. The patient should follow a healthful lifestyle (good nutrition with adequate calcium and vitamin D, and appropriate weight-bearing exercise). Follow-Up: Consider a repeat BMD and Vertebral Fracture Assessment (VFA) exam in 2 years or sooner if medically necessary, to reassess this patient's status. Reported by: JONE RUANO M.D. on 11/09/2023 10:11:00 AM.
== END ==
LOC: RAD 09:46
PROVIDERS: PCP Family Medicine; Referring Provider Family Medicine; Visit Provider Family Medicine
DX: M81.0 Age-related osteoporosis without current pathological fracture (principal)
CPT/HCPCS: 77080

== ENCOUNTER → 2023-12-10 10:45 | Outpatient (CLI) | payer MEDICARE, OTHER, SELFPAY | PROVIDERS: PCP Family Medicine; Visit Provider Physician Assistant Surgical | DX: R30.0 Dysuria (principal) | CPT/HCPCS: 87077; 87086; 87186 ==

== ENCOUNTER → 2025-03-22 08:11 | Outpatient (CLI) | payer MEDICARE, OTHER, SELFPAY ==
[2025-03-22 09:25] LABS: Add Manual Diff / Slide Review NO; Hematocrit 38.5 % (36-46); Hemoglobin 13.2 g/dL (12.0-16.0); Lymphocytes Absolute Auto 900 /uL (1100-4500); Mean Corpuscular HGB Conc 34.2 % (30-36); Mean Corpuscular Hemoglobin 31.7 PG (26-34); Mean Corpuscular Volume 92.5 fL (80-100); Platelet Count 235 X10^3/uL (150-400)
[2025-03-22 09:31] LABS: Hemoglobin A1C% w Est Avg Glu 5.2 % (4.0-6.0)
[2025-03-22 10:03] LABS: Alanine Aminotransferase 18 IU/L (<35); Albumin 4.1 g/dL (3.5-5.0); Albumin Globulin Ratio 1.7 (1.0-2.8); Alkaline Phosphatase 63 U/L (38-126); Blood Urea Nitrogen 18 mg/dL (7-17); Calcium 9.2 mg/dL (8.4-10.2); Carbon Dioxide 27 mmol/L (22-32); Chloride 106 mmol/L (98-107); Cholesterol 167 mg/dL (140-199); Estimated Glomerular Filt Rate > 60 mL/min (>60); Globulin 2.4 g/dL (1.7-4.1); Glucose 82 mg/dL (70-99); HDL Cholesterol 73 mg/dL (40-60); HEMOLYSIS < 15 (0-50); Potassium 4.5 mmol/L (3.4-5.1); Sodium 140 mmol/L (137-145); Total Protein 6.5 g/dL (6.3-8.2); Triglycerides 86 mg/dL (35-150)
== END ==
PROVIDERS: PCP Family Medicine; Referring Provider Family Medicine; Visit Provider Family Medicine
DX: Z13.1 Encounter for screening for diabetes mellitus (principal); D72.819 Decreased white blood cell count, unspecified; E78.5 Hyperlipidemia, unspecified
CPT/HCPCS: 36415; 80053; 80061; 83036; 85025

== ENCOUNTER → 2025-05-13 13:50 | Outpatient (CLI) | payer MEDICARE, OTHER, SELFPAY ==
[2025-05-13 13:56] LABS: Appearance Urine UA CLEAR; Bilirubin Urine UA NEGATIVE (NEGATIVE); Color Urine UA YELLOW; Glucose Urine UA NEGATIVE (Negative); Ketones Urine UA NEGATIVE (NEGATIVE); Leukocyte Esterase Urine UA 3+ (NEGATIVE); Nitrite Urine UA NEGATIVE (Negative); Occult Blood Urine UA 2+ (Negative); Protein Urine UA NEGATIVE (Negative); Specific Gravity Urine UA <=1.005 (1.000-1.035); Urobilinogen Urine UA 0.2 E.U./dL (0.2)
[2025-05-13 14:08] LABS: pH Urine UA 6.5 (4.5-8.0)
[2025-05-13 14:09] LABS: Culture Indicated Urine Specimen Cultured
== END ==
PROVIDERS: PCP Family Medicine; Visit Provider Physician Assistant
DX: N30.01 Acute cystitis with hematuria (principal)
CPT/HCPCS: 81001; 87077; 87086; 87186